=== PATIENT | male | born 1985 | race American Indian/Alaskan Native ===

== ENCOUNTER 2018-04-09 17:47 | Emergency (ER) | payer OTHER ==
[2018-04-09] MEDS ORDERED: CATAPRES ONE (17:56)
[2018-04-09] MEDS ORDERED: ZESTRIL ONE (17:56)
[2018-04-09] MEDS ORDERED: ZESTRIL PO ONE (18:09)
[2018-04-09 18:10] VITALS: BP 183/102
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
[2018-04-09] MEDS ORDERED: PERCOCET 5/325 PO ONE (21:06)
[2018-04-09] MEDS ORDERED: BOOSTRIX IM ONE (21:06)
[2018-04-09] MEDS ORDERED: MOTRIN PO ONE (21:06)
== END 2018-04-09 21:50 | disposition home or self-care (01) ==
LOC: ED 17:47
DX: I10 Essential (primary) hypertension (principal); M25.512 Pain in left shoulder; M54.2 Cervicalgia; M25.552 Pain in left hip; V49.59XA Passenger injured in collision with other motor vehicles in traffic accident, initial encounter; Y93.89 Activity, other specified; Y92.89 Other specified places as the place of occurrence of the external cause; Y99.8 Other external cause status
CPT/HCPCS: 90471; 90715

== ENCOUNTER 2019-07-14 10:32 | Emergency (ER) | payer SELFPAY ==
[2019-07-14 11:08] VITALS: BP 195/87
--- NOTE | 2019-07-14 12:47 | Emergency Department Report ---
- General Chief complaint: Skin/Abscess/Foreign Body Stated complaint: POSS CYST ON BACK OF HEAD Source: patient Mode of arrival: Ambulatory Limitations: No Limitations - History of Present Illness MD complaint: abscess/boil (left posterior scalp pain) -: Gradual Location: head Severity: moderate Quality: constant Consistency: constant Improves with: none Worsens with: palpation Associated symptoms: denies other symptoms Treatments Prior to Arrival: none - Related Data Previous Rx's Medication Instructions Recorded Last Taken Type Acetaminophen [Tylenol Arthritis] 650 mg PO Q6HR PRN #30 tablet.er 04/09/18 Unknown Rx Ibuprofen [Motrin] 600 mg PO Q8H PRN #30 tablet 04/09/18 Unknown Rx Lisinopril 20 mg PO QDAY #30 tablet 04/09/18 Unknown Rx DOXYCYCLINE Hyclate [Vibramycin 100 mg PO Q12HR 7 Days #14 capsule 07/14/19 Unknown Rx CAP] Ibuprofen [Motrin] 600 mg PO Q8H PRN #28 tablet MDD 3 07/14/19 Unknown Rx Lisinopril [Zestril TAB] 20 mg PO QDAY 30 Days #30 tablet 07/14/19 Unknown Rx Allergies Allergy/AdvReac Type Severity Reaction Status Date / Time No Known Allergies Allergy Verified 07/14/19 10:38 Abscess Boil HPI - HPI Chief Complaint: Skin/Abscess/Foreign Body Stated Complaint: POSS CYST ON BACK OF HEAD Duration: 3 Days History: Yes Pain, No Fever, No Purulent Drainage, No Numbness, No Foreign Body, No Previous History, No Insect Bite Home Medications: Previous Rx's Medication Instructions Recorded Last Taken Type Acetaminophen [Tylenol Arthritis] 650 mg PO Q6HR PRN #30 tablet.er 04/09/18 Unknown Rx Ibuprofen [Motrin] 600 mg PO Q8H PRN #30 tablet 04/09/18 Unknown Rx Lisinopril 20 mg PO QDAY #30 tablet 04/09/18 Unknown Rx DOXYCYCLINE Hyclate [Vibramycin 100 mg PO Q12HR 7 Days #14 capsule 07/14/19 Unknown Rx CAP] Ibuprofen [Motrin] 600 mg PO Q8H PRN #28 tablet MDD 3 07/14/19 Unknown Rx Lisinopril [Zestril TAB] 20 mg PO QDAY 30 Days #30 tablet 07/14/19 Unknown Rx Allergies/Adverse Reactions: Allergies Allergy/AdvReac Type Severity Reaction Status Date / Time No Known Allergies Allergy Verified 07/14/19 10:38 ED Review of Systems ROS: Stated complaint: POSS CYST ON BACK OF HEAD Other details as noted in HPI Comment: All other systems reviewed and negative Constitutional: denies: no symptoms reported ENT: denies: ear pain Respiratory: denies: cough Cardiovascular: denies: chest pain, syncope Skin: other (posterior scalp painful bumps) ED Past Medical Hx - Past Medical History Hx Hypertension: Yes (out of medication ( lisinopril)) - Social History Smoking Status: Never Smoker Substance Use Type: None - Medications Home Medications: Home Medications Medication Instructions Recorded Confirmed Last Taken Type Acetaminophen [Tylenol Arthritis] 650 mg PO Q6HR PRN #30 tablet.er 04/09/18 Unknown Rx Ibuprofen [Motrin] 600 mg PO Q8H PRN #30 tablet 04/09/18 Unknown Rx Lisinopril 20 mg PO QDAY #30 tablet 04/09/18 Unknown Rx DOXYCYCLINE Hyclate [Vibramycin 100 mg PO Q12HR 7 Days #14 capsule 07/14/19 Unknown Rx CAP] Ibuprofen [Motrin] 600 mg PO Q8H PRN #28 tablet MDD 3 07/14/19 Unknown Rx Lisinopril [Zestril TAB] 20 mg PO QDAY 30 Days #30 tablet 07/14/19 Unknown Rx ED Physical Exam - General Limitations: No Limitations - Head Head exam: Present: atraumatic, other (Left lower posterior scalp area tender to touch flat no swelling. Nape of neck small pustules) - Eye Eye exam: Present: normal appearance - ENT ENT exam: Present: normal exam - Neck Neck exam: Present: normal inspection, full ROM. Absent: lymphadenopathy - Respiratory Respiratory exam: Present: normal lung sounds bilaterally - Cardiovascular Cardiovascular Exam: Present: regular rate, normal rhythm - GI/Abdominal GI/Abdominal exam: Present: other (large abdominal girth) - Rectal Rectal exam: Present: deferred - Extremities Exam Extremities exam: Present: normal inspection - Neurological Exam Neurological exam: Present: alert, oriented X3 - Psychiatric Psychiatric exam: Present: normal affect - Skin Skin exam: Present: warm, dry ED Course Vital Signs 07/14/19 11:06 Temperature 98.4 F Pulse Rate 79 Respiratory 18 Rate Blood Pressure 195/87 O2 Sat by Pulse 98 Oximetry ED Medical Decision Making - Medical Decision Making This is a 34-year-old male with a 2 day complaint of painful scalp. He denies any trauma or injuries. On examination he does have a small pustular bumps to the nape of his neck. The left lower posterior scalp with tenderness most likely early development of an abscess. Skin is intact. The area is not raised there is no fluctuance, he has full range of motion of his neck Critical care attestation.: If time is entered above; I have spent that time in minutes in the direct care of this critically ill patient, excluding procedure time. ED Disposition Clinical Impression: Folliculitis Disposition: DC-01 TO HOME OR SELFCARE Is pt being admited?: No Does the pt Need Aspirin: No Condition: Stable Instructions: Folliculitis (ED) Additional Instructions: Follow up with Primary Care Doctor or [facility] in 2 days located at [address] [place] [address] [phone]. Wash hair selsun blue or head and shoulders shampoo daily. Apply warm compress to the site. Take antibioitic as prescribed apply warm compress 3 times a day return to ER for increased swelling and or fever. Prescriptions: Ibuprofen [Motrin] 600 mg PO Q8H PRN #28 tablet MDD 3 PRN Reason: Pain DOXYCYCLINE Hyclate [Vibramycin CAP] 100 mg PO Q12HR 7 Days #14 capsule Lisinopril [Zestril TAB] 20 mg PO QDAY 30 Days #30 tablet Referrals: PRIMARY CARE, [Primary Care Provider] - 3-5 Days
== END 2019-07-14 13:22 | disposition home or self-care (01) ==
LOC: ED 10:32
DX: L73.9 Follicular disorder, unspecified (principal); I10 Essential (primary) hypertension; Z79.1 Long term (current) use of non-steroidal anti-inflammatories (NSAID); Z79.899 Other long term (current) drug therapy
CPT/HCPCS: 99282